=== PATIENT | female | born 1985 | race Asian ===

== ENCOUNTER → 2019-09-25 | Outpatient (REF) | payer OTHER | LOC: M LAB REF 19:24 | PROVIDERS: ATTEND Internal Medicine Endocrinology, Diabetes & Metabolism | DX: Z85.850 Personal history of malignant neoplasm of thyroid (principal); E04.1 Nontoxic single thyroid nodule ==

== ENCOUNTER → 2019-10-31 | Outpatient (CLI) | payer OTHER ==
[~2019-10-31] MED LIST: ISOVUE-370 76% 100ML VIAL (Q9967) As Ordered ONE
--- NOTE | 2019-10-31 15:17 | REP ---
INDICATION: Malignancy of the thyroid gland PROCEDURE: CT neck with contrast COMPARISON STUDIES: No prior similar studies FINDINGS: The thyroid glands are large bilaterally and heterogeneous in appearance, but significantly greater on the left. The left thyroid has a irregular and nodular appearance extends to the level of the bifurcation of the subclavian vessels just above the aortic arch. There are a number of pathologic appearing lymph nodes in the posterior triangle on the left extending to the skull base. On the right there are diffuse irregular appearing pathologic lymph nodes inferiorly in the posterior triangle of the neck. The left thyroid is slightly enlarged, but heterogeneous and abnormal appearance. Abnormal lymph nodes extend to the supraclavicular region. The dominant irregular appearing left thyroid lobe measures approximately 4.5 centimeters transverse by 5.6 cm craniocaudad by 5 cm in AP dimension. The visualized lung apices are clear. Paranasal sinuses and mastoid air cells are clear. There is a sclerotic appearance to the left mandible which is otherwise intact. IMPRESSION: 1. 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 2. Extensive pathologic lymphadenopathy in the posterior triangles bilaterally, greater on the left. 3. 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 Electronically Signed by Juan Manuel Baeza MD 10/31/2019 03:09 P
== END ==
LOC: M RAD 14:24
PROVIDERS: ATTEND Registered Nurse
DX: R59.9 Enlarged lymph nodes, unspecified (principal); C73 Malignant neoplasm of thyroid gland
CPT/HCPCS: 70491; Q9967

== ENCOUNTER → 2019-12-30 | Outpatient (REF) | payer OTHER ==
[2019-12-30 18:14] LABS: FREE T4 1.86 NG/DL (0.76-1.46); THYROID STIMULATING HORMONE 0.084 uIU/ML (0.358-3.740)
[2019-12-31 11:37] LABS: THYROGLOBULIN ANTIBODY 15.6 U/ML (<60.0)
[2020-01-01 10:30] LABS: THRYOGLOBULIN ANTIBODIES (ATA) < 1.0 IU/mL (0.0-0.9)
== END ==
LOC: M LABDRAW1 15:27
PROVIDERS: ATTEND Internal Medicine Endocrinology, Diabetes & Metabolism
DX: C73 Malignant neoplasm of thyroid gland (principal)

== ENCOUNTER → 2020-03-31 | Outpatient (CLI) | payer OTHER ==
[2020-03-31 16:42] LABS: FREE T4 1.71 NG/DL (0.76-1.46); THYROID STIMULATING HORMONE 0.009 uIU/ML (0.358-3.740)
[2020-03-31 19:09] LABS: THYROGLOBULIN ANTIBODY < 15.0 U/ML (<60.0)
[2020-04-02 11:08] LABS: THRYOGLOBULIN ANTIBODIES (ATA) < 1.0 IU/mL (0.0-0.9); THYROGLOBULIN QUANTITATIVE 18.3 ng/mL (1.5-38.5)
== END ==
LOC: M LRY 10:24
PROVIDERS: ATTEND Internal Medicine Endocrinology, Diabetes & Metabolism
DX: C73 Malignant neoplasm of thyroid gland (principal)

== ENCOUNTER → 2020-07-08 | Outpatient (CLI) | payer OTHER ==
[2020-07-08 13:34] LABS: FREE T4 1.74 NG/DL (0.76-1.46); THYROID STIMULATING HORMONE 0.018 uIU/ML (0.358-3.740)
[2020-07-08 17:14] LABS: THYROGLOBULIN ANTIBODY 17.4 U/ML (<60.0)
[2020-07-10 11:08] LABS: THRYOGLOBULIN ANTIBODIES (ATA) < 1.0 IU/mL (0.0-0.9); THYROGLOBULIN QUANTITATIVE 16.7 ng/mL (1.5-38.5)
== END ==
LOC: M WUC 10:34
PROVIDERS: ATTEND Nurse Practitioner Family
DX: E89.0 Postprocedural hypothyroidism (principal); C73 Malignant neoplasm of thyroid gland

== ENCOUNTER → 2020-10-09 | Outpatient (CLI) | payer OTHER ==
[2020-10-09 18:21] LABS: FREE T4 1.42 NG/DL (0.76-1.46); THYROID STIMULATING HORMONE 0.043 uIU/ML (0.358-3.740)
[2020-10-11 13:49] LABS: THYROGLOBULIN ANTIBODY < 15.0 U/ML (<60.0)
[2020-10-12 09:09] LABS: THRYOGLOBULIN ANTIBODIES (ATA) < 1.0 IU/mL (0.0-0.9); THYROGLOBULIN QUANTITATIVE 18.7 ng/mL (1.5-38.5)
== END ==
LOC: M WUC 13:21
PROVIDERS: ATTEND Internal Medicine Endocrinology, Diabetes & Metabolism
DX: C73 Malignant neoplasm of thyroid gland (principal); E89.0 Postprocedural hypothyroidism